=== PATIENT | female | born 1955 | race Caucasian/White ===

== ENCOUNTER → 2017-05-09 | Outpatient (CLI) | payer BC, OTHER | LOC: FIMAGING 08:30 | PROVIDERS: ATTEND Family Medicine | DX: Z12.31 Encounter for screening mammogram for malignant neoplasm of breast (principal); Z80.3 Family history of malignant neoplasm of breast | CPT/HCPCS: G0202 ==

== ENCOUNTER 2017-06-21 13:46 | Inpatient (IN) | payer BC ==
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
--- NOTE | 2017-06-21 15:14 | CPEKG ---
Heart Rate: 73 RR Interval: 822 P-R Interval: 168 QRSD Interval: 102 QT Interval: 392 QTC Interval: 432 P [place]: 22 QRS [place]: -45 T Wave [place]: 14 EKG Severity - ABNORMAL ECG - EKG Impression: SINUS RHYTHM EKG Impression: LEFT ANTERIOR FASCICULAR BLOCK Electronically Signed By: Danny Alarcon 24-Jun-2017 14:23:39
[2017-06-21 15:25] LABS: % IMMATURE GRANULYOCYTES 0.2 % (0.0-1.1); ABSOLUTE IMMATURE GRANULOCYTES 0.01 10^3/uL (0.00-0.10); ADD DIFF? NO; ADD MORPH? NO; ADD SCAN? NO; ATYPICAL LYMPHOCYTE FLAG 0 (0-99); FRAGMENT RBC FLAG 0 (0-99); HEMOGLOBIN 13.1 g/dL (12.6-16.3); LEFT SHIFT FLG 0 (0-99); LIPEMIA HEMOLYSIS FLAG 80 (0-99); MEAN CELL HEMOGLOBIN 29.2 pg (27.9-34.1); MEAN CELL HEMOGLOBIN CONCENTR. 33.6 g/dL (32.4-36.7); MEAN CELL VOLUME 87.1 fL (81.5-99.8); MEAN PLATELET VOLUME 8.6 fL (8.7-11.7); PLATELET CLUMPS FLAG 0 (0-99); PLATELET COUNT 259 10^3/uL (150-400); RED BLOOD CELL COUNT 4.48 10^6/uL (4.18-5.33); RED CELL DISTRIBUTION WIDTH 13.9 % (11.5-15.2)
[2017-06-21 15:38] LABS: ANION GAP 12 mEq/L (8-16); CALCIUM 9.3 mg/dL (8.5-10.4); CARBON DIOXIDE 22 mEq/l (22-31); CHLORIDE 107 mEq/L (97-110); CREATININE 0.9 mg/dL (0.6-1.0); GLOMERULAR FILTRATION RATE > 60; GLUCOSE 90 mg/dL (70-100); POTASSIUM 3.9 mEq/L (3.5-5.2); SODIUM 141 mEq/L (134-144)
[2017-06-21] MEDS ORDERED: ASPIRIN 81 MG CHEWABLE TAB PO ONE (17:39)
--- NOTE | 2017-06-21 18:02 | PDGENHP ---
History and Physical History and Physical: CC: Right-sided numbness HISTORY: This patient was doing well until last evening around 5 o'clock when she had onset of abrupt numb tingling sensation in the right side of her face right upper extremity down to the hand and fingers. There is no associated weakness, headache, visual loss and no other neurologic symptoms with this. 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 She was concerned that the symptoms may have been an allergic reaction to appear that she drank. She went home to bed and woke up and still had the same symptoms this morning. She comes into the ER for further evaluation. By now most of the symptom has completely resolved but she still has a tingly and numb sensation in her right hand. There has no other new symptoms occurring in that time. She has no prior episodes of symptoms like this and no other symptoms that sound at all stroke-like. She has no history of use of aspirin or other anti- platelet agents. She is not diabetic. She is not hypertensive. She is hypercholesterolemic. There is no family history of stroke vascular disease or heart disease. She does not use any tobacco or stimulants or other street drugs. She has no inflammatory illnesses and no recent history of fever. The patient does mention that for years she gets an occasional short burst of rapid palpitations in the central chest generally lasting 10 seconds or thereabouts. She has no history of syncopal spells. In addition the patient developed onset of a cold-like illness 4 weeks ago and now has a persistent cough since then. Around 3 weeks ago she started having significant wheezing and worsening of the cough which is nonproductive. She saw primary care doctor 2 weeks ago who diagnosed "asthmatic bronchitis" and gave her a fluticasone salmeterol inhaler which the patient thinks is helping the cough. She has not been short of breath or had chest pain with this and again no fevers. She has no prior history of asthma or any other lung disease and no previous episodes like this. She has never smoked, did not grow up on a farm, and has had no other concerning lung exposures or recent travel outside of the country. She does get hayfever in the springtime and she is postmenopausal. 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 I have reviewed the list and ordered appropriate medicines. PHYSICAL EXAMINATION: Vital Signs: Normal without fever Scrap Metal Collector: Sinus Examination: General: alert, oriented, good mentation, relaxed Neurologic: She has subjective numbness and tingling in the right hand only, but has intact sensation there, otherwise normal speech/language, normal hydrographer, no focal weakness, no pronator drift, pupils normal Skin: warm, dry, good color, no rash HEENT: normal Neck: no mass or jvd Resps: relaxed She coughs frequently during the exam but does not produce any phlegm Lungs: clear breath sounds Heart: regular, no murmur Abdomen: soft, nondistended, nontender, +BS, no mass Upper Extremities: normal Lower Extremities: no edema, warm No Bleeding or bruising LABORATORY DATA: Unremarkable CBC and Chem panel RADIOLOGY STUDIES: CT scan of the head noncontrast, I reviewed images, some possible mild micro vascular ischemic gliosis otherwise normal MRI of the brain, I reviewed images, my interpretation there is a very small and probably subacute appearing ischemic lesion in the left thalamus 12 LEAD EKG: Unremarkable sinus rhythm EKG ASSESSMENT: -Acute L thalamic CVA, > 24 hours since onset, L facial and LUE numbness is improving, no weakness -no previous use of aspirin or platelet inhibitors, cholesterol is only risk factor aside from AH, she does have some palpitations which require further evaluation -hx of high cholesterol -this will need aggressive treatment, will check the numbers here -episodic palpitations -will watch for AFib on monitor here but if no AFib seen here would still consider outpatient monitoring for AFib since she does have intermittent and AFib would be an indication for lifelong anticoagulation for her -persitant cough after onset of cough and wheeze a month ago -initially diagnosed as "asthmatic bronchitis" by PCP, responding somewhat to inhalers -I have suspicion for actual new onset of asthma triggered by viral or otherwise PLANS: Observed overnight on travel services professional Consider outpatient travel services professional if AFib is not seen here Begin daily aspirin which was started in the ER Recheck her cholesterol and unless that is surprisingly low for her history would start her on statin at discharge Blood pressure monitoring and neuro checks CT angio of head and neck is ordered Because of her wheezing and persistent cough responding to inhaled bronchodilator and steroid after a cold, would consider the new onset of asthma in a postmenopausal woman. Will order bedside spirometry here if this is abnormal she should be referred to pulmonology or electrical wirer for further assessment. If it is normal she might be able to forego this unless he has further episodes or any episodic shortness of breath. All the above was reviewed in detail with the patient and her son at the bedside and their questions are answered I have reviewed the patient's case in detail with Dr. Estee Gold
[2017-06-21] MEDS ORDERED: LABETALOL HCL 5 MG/ML 20 ML MDV IVP PRN (19:04)
[2017-06-21] MEDS ORDERED: ZOLPIDEM TARTRATE 5 MG TAB PO PRN (19:07)
[2017-06-21] MEDS ORDERED: ACETAMINOPHEN 325 MG TAB PO PRN (19:07)
[2017-06-21] MEDS ORDERED: ONDANSETRON 4 MG/2 ML VIAL IVP PRN (19:07)
[2017-06-21] MEDS ORDERED: ZOLPIDEM TARTRATE 5 MG TAB PO SCH (21:00)
[2017-06-21] MEDS ORDERED: CALCIUM CARBONATE 500 MG TAB PO SCH (21:00)
[2017-06-21] MEDS ORDERED: CHOLECALCIFEROL VIT D3 2,000 UNITS TAB/CAP PO SCH (21:00)
[2017-06-21] MEDS: OMEGA-3 FATTY ACIDS 1,000 MG CAP PO SCH (21:25)
[2017-06-21] MEDS: FLUTICASONE/SALMETER 100/50MCG DISKUS IH SCH (22:11)
[2017-06-21] MEDS: FLUTICASONE NASAL 120 SPRAYS/16 GM MDI NS SCH (22:11)
[2017-06-22 08:28] LABS: CHOLESTEROL 203 mg/dL (140-220); CHOLESTEROL/HDL RATIO 4.61 RATIO (1.00-4.44); HIGH DENSITY LIPOPROTEIN 44 mg/dL (40-85); LDL/HDL RATIO 3.02 RATIO (1.00-3.22); LOW DENSITY LIPOPROTEIN 133 mg/dL (80-100); NON-HIGH DENSITY LIPOPROTEIN 159 mg/dL (90-129); TRIGLYCERIDE 134 mg/dL (35-135); VERY LOW DENSITY LIPOPROTEINS 26 mg/dL (8-25)
[2017-06-22] MEDS ORDERED: ASPIRIN 81 MG CHEWABLE TAB PO SCH (09:00)
--- NOTE | 2017-06-22 09:44 | PDMN ---
Medical Necessity Medical necessity: M84 stroke ischemic:2 days-acute L thalamic CVA-
--- NOTE | 2017-06-22 09:46 | NEUROPROG ---
Assessment: HOSPITAL NEUROLOGY CONSULT REQUESTING: Chele Alvarado MD REASON: stroke HPI: 62 year old right-handed woman with a history of hyperlipidemia who presented to our ED yesterday with right face and right upper extremity tingling/numbness. 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 She was still able to perform, as her right hand is her picking hand. Symptoms continued into the next day, so she called her PCP, who directed her to the ED. Patient went to an urgent care instead, and was again directed to the ED. On arrival to the ED, she noted her facial symptoms had resolved, but the fingertips in the right hand still felt tingly. MRI brain wo was done which revealed an acute/subacute lacunar infarct in the left thalamus. She was admitted for further stroke workup. Aspirin was started. She reports having a history of hyperlipidemia without treatment. She denies any identifiable history of hypertension or diabetes/IFG. She has smoked both cigarettes and cigars intermittently, but she hasn't done so for 3-4 months. She also has a long-standing history of snoring. No prior history of stroke/ TIA. ROS: As per the HPI, otherwise a complete 12 point ROS was performed and is negative ALLERGIES AND MEDS: As recorded in the EMR - reviewed and reconciled PFSH: As per the intake H&P by Dr. Alvarado from yesterday EXAM: VS reviewed in EMR GEN: WDWN laying in NAD HEENT: NCAT, sclera anicteric, conjunctiva not injected, MMM, oropharynx clear, no scalp tenderness NECK: supple, nontender, no meningismus CV: RRR s1 s2 wo m/r/c/g. Carotid pulses 2+ wo bruit NEURO: NIHSS 0 MS: awake, alert, oriented to all spheres. Speech nondysarthric. No language disturbance. Follows commands. Attends to both sides. Recent/remote memory grossly intact. Mood euthymic. Good fund of knowledge. CN: pupils 4mm round and reactive. Fundi with sharp discs. VFF. Primary gaze centered. Full ocular motility. Facial sensation preserved. Face symmetric. Hearing grossly intact to finger rub. Palatoglossal movements intact. Shoulder shrug and head turn strong. MOTOR: normal bulk/tone. No adventitial movements. Full power throughout. SENSORY: intact to all modalities throughout. No extinction. COORD: no ataxia FN/HS. Faith preserved. REFLEX: plantars down. No clonus. DTRS 2/4. GAIT: deferred to PT safety eval DATA REVIEW: Labs reviewed in EMR LDL 133 PERSONALLY INTERPRETED RESULTS AND DATA: MRI brain wo - acute/subacute linear focus of lacunar infarct in the left thalamus. Multiple small areas of T2 FLAIR hyperintensity in the subcortical/ periventricular white matter reflective of chronic microvascular ischemic change. IMPRESSION AND RECOMMENDATIONS: // ACUTE ISCHEMIC STROKE // HLD // SNORING // HX TOBACCO SMOKING Patient with cheiro-oral syndrome that has dramatically improved and is fitting with her lacunar stroke of the thalamus. Mechanism likely small vessel disease - conventional risk factors include HLD, hx of smoking, snoring with likely JOSE. - CTA head/neck to screen for large vessel occlusive disease - cont ASA 81mg daily - intensive statin therapy for goal LDL < 70 - goal normotension (<120/80) - monitor and treat as outpatient as needed - A1c screening with goal < 6.5 - outpatient JOSE screening - smoking cessation counseling provided - counseled on diet (Mediterranean style) and routine exercise - PT/OT/STEAM DRIER TENDER consults - stroke education - we focused on activating EMS for any stroke-like symptoms. Literature provided. - followup PCP within 1 week of discharge - followup neurology 6-8 weeks - likely able to discharge home later today Objective: Vital Signs Temp Pulse Resp BP Pulse Ox 36.7 C 67 14 118/80 93 06/22/17 07:13 06/22/17 07:13 06/22/17 07:13 06/22/17 07:13 06/22/17 07:13 Microbiology 06/21/17 21:30 Respiratory Panel (PCR) - Final Nasal, Sinus - Swab No Organism Detected 06/21/17 06/22/17 06/23/17 05:59 05:59 05:59 Intake Total 400 Balance 400 Allergies/Adverse Reactions: ciprofloxacin [From Cipro] Allergy (Verified 06/21/17 13:48) ciprofloxacin HCl [From Cipro] Allergy (Verified 06/21/17 13:48) Sulfa (Sulfonamide Antibiotics) [Sulfa(Sulfonamide Antibiotics)] Allergy ( Verified 06/21/17 13:48)
[2017-06-22] MEDS: FLUTICASONE/SALMETER 100/50MCG DISKUS IH SCH (10:15)
[2017-06-22 11:07] VITALS: RESP 16
[2017-06-22] MEDS ORDERED: IOPAMIDOL (ISOVUE 370) 100 ML BTL IV ONE (13:19)
--- NOTE | 2017-06-22 14:27 | ASMTCMCOM ---
CM Note CM Note Notes: Pt admitted for cva. PT/OT/RADIATOR CORE TESTER clear pt for home. Pt to follow up w neurology 6-8 weeks. Anticipate pt will d/c when medically stable with family support, no CM d/c needs identified at this time. CM available for changes/needs. Date Signed: 06/22/2017 02:26 PM Electronically Signed By:LIZZIE Jacob
[2017-06-22] MEDS: FLUTICASONE NASAL 120 SPRAYS/16 GM MDI NS SCH (14:43)
[2017-06-22 15:08] VITALS: BP 139/82; PULSE 77; TEMP 98.3; O2SAT 95
--- NOTE | 2017-06-22 16:55 | ASDISCHSUM ---
Discharge Information Plan Status:Home with No Needs Medically Cleared to Leave: Discharge Date:06/22/2017 04:41 PM D/C Disposition:Home, Routine, Self-Care ADT D/C Disposition:Home, Routine, Self-Care Projected Discharge Date:06/22/2017 04:41 PM Transportation at D/C: Discharge Delay Reason: Follow-Up Date:06/22/2017 04:41 PM Discharge Slot: Final Diagnosis: Placement Information Patient Contact Information Contact Name:DIANA Relationship: Address:[address] City:[facility] Phone: [facility]/Zip Code:[place] [address] Email: Financial Information Financial Class:HMO and PPO Plans Primary Plan Desc: OUT OF STATE PPO Primary Plan Number:[id number] Secondary Plan Desc: Secondary Plan Number: Assessment Information [facility] CM Progress Note CM Note CM Note Notes: Pt admitted for cva. 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 Pt to follow up w neurology 6-8 weeks. Anticipate pt will d/c when medically stable with family support, no CM d/c needs identified at this time. CM available for changes/needs. Date Signed: 06/22/2017 02:26 PM Electronically Signed By:LIZZIE Jacob Intervention Information
--- NOTE | 2017-06-23 03:10 | GDS ---
[f rep st] DISCHARGE SUMMARY DISCHARGE DIAGNOSES: 1. Acute ischemic stroke. 2. Hyperlipidemia. 3. History of tobacco use. CONSULTATIONS: Neurology. STUDIES AND PROCEDURES DONE: 1. CT of the head. 2. MRI of the brain. 3. CT angio of the head and neck. PHYSICAL EXAMINATION: GENERAL: The patient is alert. VITAL SIGNS: Afebrile at 36.8, pulse 77, res piratory rate 16, blood pressure is 139/82. She is saturating 95% on room air. I have seen and evaluated the patient on the day of discharge. HOSPITAL COURSE: The patient is a 62-year-old female, who presented to the emergency room with compl aints of right face and right upper extremity numbness and tingling. She was evaluated during this h ospitalization and diagnosed with: 1. Acute ischemic stroke. Her symptoms have completely resolved prior to disposition. She did rece coretta a consultation from Neurology. A CT angio of the head and neck was performed. She will follow u p in the outpatient setting with her primary care physician. She has been started on aspirin 81 mg d aily. 2. Hyperlipidemia. I reviewed the patient's laboratory evaluation with her. She is following up wi th her primary care physician, Dr. Jesse Hunter, on 06/23/2017, and wishes to defer any statin thera py initiation until she follows up with her primary care physician. I have expressed to her the impo rtance of starting on a statin. She does understand this and is in agreement to initiate one with he r primary care physician. DISPOSITION: The patient will be discharged home. Again, her symptoms have completely resolved. FOLLOWUP: She will follow up with her primary care physician tomorrow, 06/23/2017. There are no pen ding studies. DISCHARGE MEDICATIONS: Please refer to EMR form. I have not provided any prescription for the patie nt at the time of disposition. /[id number]
== END 2017-06-22 16:41 | disposition home or self-care (01) | DRG 66 ==
LOC: OBSVTOIN 18:09 → F3N 19:42 → UNDODISIN 20:43
PROVIDERS: ADMIT Internal Medicine; ATTEND Internal Medicine
DX: I63.9 Cerebral infarction, unspecified (principal); E78.5 Hyperlipidemia, unspecified; R05 Cough; R29.700 NIHSS score 0; Z87.891 Personal history of nicotine dependence
CPT/HCPCS: 92523-GN; 97161-GP; 97165-GO; Q9967

== ENCOUNTER → 2017-07-12 | Outpatient (CLI) | payer BC | LOC: BRMIMAGING 09:28 | PROVIDERS: ATTEND Family Medicine | DX: Z13.820 Encounter for screening for osteoporosis (principal) ==

== ENCOUNTER → 2018-05-10 | Outpatient (CLI) | payer BC | LOC: FIMAGING 15:05 | PROVIDERS: ATTEND Family Medicine | DX: Z12.31 Encounter for screening mammogram for malignant neoplasm of breast (principal); Z80.3 Family history of malignant neoplasm of breast ==

== ENCOUNTER 2018-07-17 15:11 | Observation (INO) | payer BC ==
[2018-07-17] MEDS ORDERED: ONDANSETRON DISINTEGRATING 4 MG TAB PO PRN (20:15)
[2018-07-17] MEDS ORDERED: ACETAMINOPHEN 325 MG TAB PO PRN (20:15)
[2018-07-17] MEDS ORDERED: ONDANSETRON 4 MG/2 ML VIAL IVP PRN (20:15)
--- NOTE | 2018-07-17 20:26 | PDGENHP ---
<Melanie Moe - Last Filed: 07/17/18 20:48> History and Physical - Chief Complaint Confusion - History of Present Illness 63 y/o presents as a direct admission from urgent care d/t transient global amnesia. She has a history of a CVA one year ago. 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 She called her and he told her to go to the urgent care. At urgent care, she didn't recognize the physician who was evaluating her when he left the room and then re-entered. The says her confusion went on for one hour and she is now at her baseline. However, she continues to be unable to recognize someone after interacting with them for a great length of time. She denies headaches, vision changes, lightheadedness, chest pains, SOB. Outside facility Head CT w/o contrast is negative for any intracranial abnormalities. She is being admitted for observation overnight. Past Medical/Surgical 1. CVA in 2017 2. Hyperlipidemia 3. Insomnia 4. Arthritis Social 1. Denies tobacco or illicit drug use. Drinks 2 alcohol drinks/day 2. Lives with her Sonny Vital Signs 129/92 61 HR 22 Respirations 95% RA 36.6c History Information - Allergies/Home Medication List Allergies/Adverse Reactions: ciprofloxacin [From Cipro] Allergy (Verified 06/21/17 13:48) ciprofloxacin HCl [From Cipro] Allergy (Verified 06/21/17 13:48) Sulfa (Sulfonamide Antibiotics) [Sulfa(Sulfonamide Antibiotics)] Allergy ( Verified 06/21/17 13:48) Home Medications: Zolpidem Tartrate [Ambien 10 mg] 10 mg PO HS 02/19/15 [Last Taken 07/16/18] Cholecalciferol Vit D3 [Vitamin D3 2000 units tab (OTC)] 2,000 units PO HS 06/21 [Last Taken 07/16/18] [place]-3 Fatty Acids [Fish Oil 1000 mg (*)] 1,000 mg PO HS 06/21/17 [Last Taken 07/16/18] Aspirin [Aspirin 81mg (*)] 81 mg PO HS 07/17/18 [Last Taken 07/16/18] Atorvastatin Calcium [Lipitor 20 mg (*)] 20 mg PO HS 07/17/18 [Last Taken ] Calcium Carbonate [Oyster Shell Calcium 500 mg (*)] 500 mg PO HS 07/17/18 [Last Taken 07/16/18] Herbals/Supplements -Info Only 1 ea PO DAILY 07/17/18 [Last Taken Unknown] I have personally reviewed and updated: family history, medical history, social history, surgical history Past Medical History: See HPI list - Surgical History Additional surgical history: See HPI list - Family History Positive for: non-pertinent - Social History Smoking Status: Never smoked Alcohol Use: Occasionally Drug Use: None Review of Systems Review of Systems: ROS: 10pt was reviewed & negative except for what was stated in HPI & below Constitutional: Reports: no symptoms EENMT: Reports: no symptoms Cardiac: Reports: no symptoms Respiratory: Reports: no symptoms Gastrointestinal: Reports: no symptoms Genitourinary: Reports: no symptoms Muscolosketal: Reports: no symptoms Skin: Reports: no symptoms Neurological: Reports: other (Unable to recognize people ) Hematologic/Lymphatic: Reports: no symptoms Immunologic/Allergy: Reports: other (See allergy list) Physical Exam Physical Exam: Temp Pulse Resp BP Pulse Ox 36.6 C 61 22 H 129/92 H 95 07/17/18 20:12 07/17/18 20:12 07/17/18 20:12 07/17/18 20:12 07/17/18 20:12 Constitutional: no apparent distress, appears nourished, not in pain Eyes: PERRL, anicteric sclera, EOMI Ears, Nose, Mouth, Throat: moist mucous membranes, hearing normal, ears appear normal, no oral mucosal ulcers Cardiovascular: regular rate and rhythym, no murmur, rub, or gallop, No edema Peripheral Pulses: 2+: dorsalis-pedis (R) (Radial 2+), dorsalis-pedis (L) ( Radial 2+) Respiratory: no respiratory distress, no rales or rhonchi, clear to auscultation Gastrointestinal: normoactive bowel sounds, soft, non-tender abdomen, no palpable masses Genitourinary: no bladder fullness, no bladder tenderness Skin: warm, normal color, no rashes or abrasions, no fluctuance, no induration, No mottled Musculoskeletal: full muscle strength, no muscle tenderness, normal joint ROM, no joint effusions Neurologic: AAOx3, sensation intact bilaterally, CN II-XII Intact Psychiatric: interacting appropriately, not anxious, not encephalopathic, thought process linear Lymph, Heme, Immunologic: no cervical LAD, no supraclavicular LAD Assessment & Plan Plan: 1. Transient global amnesia -Consult neurology; will most likely need to f/u outpatient with neurology for further testing -Cont tele monitoring -UA, trop, CMP, D-dimer, CBC performed at outside facility - all unremarkable. Will cycle trop one more time. -Swallow eval one time, then she may have regular diet -NIH scale Qshift 2. Hyperlipidemia -May continue atorvastatin 3. Insomnia -May continue Ambien Diet: Regular if pass swallow eval VTE ppx: SCDs Code: Full Dispo: Admit to obs <Cherri Brady - Last Filed: 07/17/18 21:30> History and Physical - History of Present Illness Review of Systems Review of Systems: Physical Exam Physical Exam: Temp Pulse Resp BP Pulse Ox 36.6 C 61 22 H 129/92 H 95 07/17/18 20:12 07/17/18 20:12 07/17/18 20:12 07/17/18 20:12 07/17/18 20:12 Assessment & Plan Plan: Patient seen and evaluated separately and care plan reviewed with JENNIFER Moe, agree with her plan as outlined above and separate documentation for further details.
[2018-07-17] MEDS ORDERED: ASPIRIN 81 MG CHEWABLE TAB PO SCH (21:00)
[2018-07-17] MEDS ORDERED: CHOLECALCIFEROL VIT D3 2,000 UNITS TAB/CAP PO SCH (21:00)
[2018-07-17] MEDS ORDERED: OMEGA-3 FATTY ACIDS 1,000 MG CAP PO SCH (21:00)
[2018-07-17] MEDS ORDERED: ZOLPIDEM TARTRATE 5 MG TAB PO PRN (21:00)
[2018-07-17] MEDS ORDERED: CALCIUM CARBONATE 500 MG TAB PO SCH (21:00)
[2018-07-17] MEDS ORDERED: ATORVASTATIN CALCIUM 20 MG TAB PO SCH (21:00)
--- NOTE | 2018-07-17 21:38 | HOSPPROG ---
Hospitalist Progress Note Assessment/Plan: 63 yo F with hx of CVA one year ago presenting as right hand/face numbness and tingling presenting with memory loss # memory loss: patient with what sounds like around 2 hours of memory loss earlier today described as not remember what she was doing and why she was where she was--she did remember more basic things like who she was and to call her , was able to drive to hospital. Still has loss of memory from that time. All in all sounds most c/w transient global amnesia, sxs are improving but still present (forgot JENNIFER Moe after having spoken to her for 30 minutes). She does not significantly increased stress recently around her work. Non focal neuro exam, head CT negative at OSH, no other sxs to suggest other more global encephalopathy. Will monitor overnight, will ask neuro to see in am, if sxs resolve completely could likely dc in am without further testing, if sxs linger may need brain MRI for further eval. Labs at OSH were wnl. # hx of CVA: with sxs at that time of hand/face numbness, all resolved other than mild right hand tingling # observation status Patient new to my care. Old records reviewed and summarized as above. care plan reviewed with ER doctor as above, care plan reviewed with JENNIFER Moe, patient seen by myself independently, please see her H&P for further details. Objective: Vital Signs Temp Pulse Resp BP Pulse Ox 36.6 C 61 22 H 129/92 H 95 07/17/18 20:12 07/17/18 20:12 07/17/18 20:12 07/17/18 20:12 07/17/18 20:12 ICD10 Worksheet Patient Problems: Problems Problem Status Onset Acute ischemic stroke Acute
--- NOTE | 2018-07-18 08:49 | HOSPPROG ---
Hospitalist Progress Note Assessment/Plan: 63 y/o presents as a direct admission from urgent care d/t transient global amnesia. She has a hx of a stroke in 2017. Outside head facility noted no intracranial abnormalities per CT of her head. First encounter, chart reviewed. *Transient global amnesia -dc Ambien in case this is impacting her -reviewed tele monitoring and shows sinus rhythm -per the previous provider, labs were unremarkable -will get an MRI to r/o abnormality *Hyperlipidemia -statin *Insomnia -hold Ambien -patient has been on this for years and says it is the only thing that helps her sleep *plan: reviewed her care w Dr Chong, if MRI is stable Subjective: Cindy feels fine, has no complaints. Her symptoms completely resolved Objective: Vital Signs Temp Pulse Resp BP Pulse Ox 36.7 C 70 11 L 129/78 H 96 07/18/18 08:00 07/18/18 08:00 07/18/18 08:00 07/18/18 08:00 07/18/18 08:00 07/17/18 07/18/18 07/19/18 05:59 05:59 05:59 Intake Total 400 Balance 400 - Physical Exam Constitutional: no apparent distress, appears nourished, not in pain Eyes: PERRL Ears, Nose, Mouth, Throat: hearing normal Cardiovascular: regular rate and rhythym Respiratory: no respiratory distress Gastrointestinal: normoactive bowel sounds Skin: warm Musculoskeletal: full muscle strength Neurologic: AAOx3, CN II-XII Intact, No pronator drift, No facial droop Psychiatric: interacting appropriately, not anxious, not encephalopathic, thought process linear ICD10 Worksheet Patient Problems: Problems Problem Status Onset Acute ischemic stroke Acute
[2018-07-18] MEDS ORDERED: Herbals/Supplements -Info Only PO SCH (09:00)
--- NOTE | 2018-07-18 11:47 | GCON ---
NEUROLOGY CONSULT REFERRING PHYSICIAN: SHIELA Barrientos CHIEF COMPLAINT: Amnesia. HISTORY OF PRESENT ILLNESS: The patient is a very pleasant 63-year-old lady who is known to the Neur ology service because of a small vessel lacunar-type left thalamic infarct in June of 2017, evalu ated and treated by Dr. Santana. More recently, she has been doing well and started antiplatelet therapy, statin therapy, and got on t o CPAP for JOSE. She was not diagnosed with hypertension. Therefore, she is maximally controlling he r vascular risk factors. 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 In this se tting, she was out yesterday morning, doing some [id number] campaign work. When she came back from a door and got back into her car, she suddenly did not remember why she was out and what she was doi ng. She was concerned about her sudden amnesia and called her . Her noticed that she was amnestic to immediate memory as well and directed her to the emergency department in [facility]. She apparently had a negative head CT there, and the emergency department at [facility] sent her to [facility] for further management. Essentially, the patient had pure ant erograde amnesia for around 2 hours and then spontaneously resolved. There was never any report of a phasia, dysarthria or sensory/motor symptoms. It was pure inability to form new memories with a dura tion of 2 hours and spontaneous resolution. There was no Valsalva type activity the morning prior. She was not constipated, etc. The only change she can describe is a high amount of stress. REVIEW OF SYSTEMS: A 10-point review of systems is done, only pertinent to the HPI. For past medical history, social history, family history, home medications, allergies, see Dr. Alfred son's note. PHYSICAL EXAM: VITAL SIGNS: Blood pressure is 111/72, temperature 36.8, heart rate 70s. GENERAL: Patient is in no acute distress, very pleasant. NEUROLOGIC: Higher mental function: She has no aph tamara. She has 5/5 on attention and 3/3 on delayed recall. Cranial nerve exam is normal 2 through 7, 11, and 12. Motor exam is normal for strength and tone throughout. Sensory exam is normal in all 4 extremities. Coordination is normal in upper and lower extremities. IMPRESSION/PLAN: 1. Remote history of small-vessel lacunar left thalamic infarct. 2. Transient global amnesia. Clinically, the patient's history is consistent with transient global amnesia. The previous infarct and its location certainly may be a risk factor. We will proceed with an MRI of brain to visualize a ny potential new infarcts or other abnormalities. If there are no acute changes or concerning findin gs on repeat MRI brain this morning, then she can discharge home later today. She will be on 90 days of driving restrictions and seizure precautions. She is agreeable. We will obtain an outpatient EE G and follow up afterwards. If there are abnormalities on MRI brain, then certainly we will make inp atient recommendations accordingly. Thank you for this consultation. We will follow along with this patient. Seventy total minutes floor time today; over 50% in direct counseling and coordination of care with t his patient. /[id number]/MODL
[2018-07-18 11:57] VITALS: BP 116/84
--- NOTE | 2018-07-18 14:23 | GDS ---
DISCHARGE DIAGNOSES: 1. Transient global amnesia. 2. Hyperlipidemia. 3. Insomnia. CONSULTATIONS: During her stay, Dr. Bridger Chong. HISTORY: Briefly, the patient is a 63-year-old woman who has a history of a small vessel lacunar type left thalamic infarct. 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 When she got back to her car, she could not remember why she was out and what she was doing. She had sudden amnesia, but was able to call her . He noticed that she was off and was directed to go to the emergency department at [facility]. She had a negative head CT there , and she came to [facility] for further evaluation. Her symptoms subsequently resolved. Her imaging there at [facility] was negative. She had a brain MRI performed here. This showed an old left thalamic lacunar infarct. She had no acute infarct, acute hemorrhage, hydrocephalus, mass effect or herniation. She has multiple nonischemic hyperintense T2/FLAIR signal abnormalities in the white matter of bilateral cerebral hemispheres. Differential diagnosis includes moderate microvascular ischemic gliosis versus less likely post-infection post-inflammatory sequela. She was seen and evaluated by Dr. Chong, who recommended no driving and follow up with an outpatient EEG. HOSPITAL COURSE: 1. Transient global amnesia, none further. I reviewed her teletypesetter monitor. She has been in sinus rhythm. The MRI shows nothing acute. Further followup in the outpatient setting. 2. Hyperlipidemia, on statin therapy. 3. Insomnia. She has been on Ambien for many years. Recommend maybe she cut the dose back in half just in case this is affecting her and try Sleepytime Tea. DISCHARGE CONDITION: Stable. Blood pressure is 129/78. O2 sats on room air 96 %. Respiratory rate is 11. Pulse is 70. Temperature is 36.7 Celsius. DISCHARGE MEDICATIONS: Please see the EMR. DISCHARGE INSTRUCTIONS: 1. No driving for the next 90 days. 2. Also on seizure precautions. 3. Follow up with Dr. Chong for an EEG. /[id number]/MODL MTDD
== END 2018-07-18 14:05 | disposition home or self-care (01) ==
LOC: F3N 19:10
PROVIDERS: ADMIT Internal Medicine; ATTEND Internal Medicine
DX: G45.4 Transient global amnesia (principal); E78.5 Hyperlipidemia, unspecified; G47.00 Insomnia, unspecified; G47.33 Obstructive sleep apnea (adult) (pediatric); Z86.73 Personal history of transient ischemic attack (TIA), and cerebral infarction without residual deficits
CPT/HCPCS: 70551; G0378

== ENCOUNTER → 2018-07-25 | Outpatient (CLI) | payer BC ==
--- NOTE | 2018-07-25 13:56 | CPEEG ---
DATE OF STUDY: 07/25/2018 INTERPRETATION: This 4-hour video EEG recording is normal. There were no potentially epileptogenic abnormalities present in the awake or sleep recordings. During the video EEG monitoring session, the patient did not have any clinical events. REPORT: This 4-hour video EEG contains 10 Hz alpha activity over the posterior head regions. There was no abnormal activation at rest, during photic stimulation, or hyperventilation. There was promin ent beta frequency activity in the background. This can be a normal physiologic finding. The patien t became drowsy and fell into sustained sleep. There was no abnormal activation during drowsiness, s leep, or during times of arousal. The patient did not have any clinical events during the video EEG monitoring session. /[id number]/MODL
== END ==
LOC: FCPNEURO 07:49
PROVIDERS: ATTEND Psychiatry & Neurology Neurology
DX: R41.3 Other amnesia (principal)

== ENCOUNTER → 2018-08-16 | Outpatient (CLI) | payer BC | LOC: BRMIMAGING 08:44 | PROVIDERS: ATTEND Family Medicine | DX: Z13.820 Encounter for screening for osteoporosis (principal); M85.89 Other specified disorders of bone density and structure, multiple sites ==